=== PATIENT | male | born 1995 | race Asian ===

== ENCOUNTER 2021-07-05 20:39 | Emergency (ER) | payer BC ==
[~2021-07-05] VITALS: Ht 170.2 cm; Wt 61.2 kg
--- NOTE | 2021-07-05 20:54 | NUR ---
Dr. Gutiérrez examining patient.
[2021-07-05 20:56] VITALS: BP 109/69
--- NOTE | 2021-07-05 21:04 | NUR ---
PT TAKEN TO BED 5
[2021-07-05] MEDS ORDERED: IBUPROFEN 800 MG TAB PO ONE (21:20)
--- NOTE | 2021-07-05 21:45 | NUR ---
LAB AT BEDSIDE
[2021-07-05 22:08] LABS: BASOPHILS % (AUTO) 0.9 % (0.0-2.0); EOSINOPHILS % (AUTO) 0.2 % (0.0-4.0); HEMOGLOBIN 14.8 g/dL (12.0-18.0); LYMPHOCYTES # (AUTO) 0.7 K/uL (2.0-11.5); LYMPHOCYTES % (AUTO) 15.5 % (20.5-51.1); MEAN CORPUSCULAR HEMOGLOBIN 31 pg (27-31); MEAN CORPUSCULAR HGB CONC 34 g/dL (33-37); MEAN CORPUSCULAR VOLUME 91.4 fL (80-94); MONOCYTES # (AUTO) 0.6 K/uL (0.8-1.0); MONOCYTES % (AUTO) 11.8 % (1.7-9.3); NEUTROPHILS # (AUTO) 3.3 K/uL (1.8-7.7); NEUTROPHILS % (AUTO) 71.6 % (42.2-75.2); PLATELET COUNT (AUTO) 150 K/uL (140-450); RED BLOOD CELL COUNT(AUTO) 4.81 MIL/uL (4.20-6.10); RED CELL DISTRIBUTION WIDTH 12.4 % (11.6-13.7); WHITE BLOOD COUNT (AUTO) 4.7 K/uL (4.8-10.8)
--- NOTE | 2021-07-05 22:38 | NUR ---
PT TAKEN TO CT
--- NOTE | 2021-07-05 22:42 | NUR ---
PT TO CT
[2021-07-05 22:46] LABS: ALBUMIN 4.1 g/dL (3.4-5.0); ANION GAP 11.5 (8-16); CARBON DIOXIDE 27.5 mmol/L (21-32); CREATININE 1.1 mg/dL (0.6-1.3); TOTAL BILIRUBIN 0.8 mg/dL (0.0-1.0)
--- NOTE | 2021-07-05 23:06 | NUR ---
PATIENT RESTING IN BED. STATES PAIN IS 2/10
--- NOTE | 2021-07-06 00:06 | NUR ---
PENDING DC PAPERWORK.
--- NOTE | 2021-07-06 00:16 | NUR ---
ULTRASOUND DONE AT BEDSIDE
[2021-07-06 00:26] VITALS: BP 117/68
--- NOTE | 2021-07-06 00:26 | NUR ---
Patient discharged with v/s stable. Written and verbal after care instructions given and explained. Patient verbalized understanding. Ambulatory with steady gait. All questions addressed prior to discharge. Advised to follow up with PMD.
--- NOTE | 2021-07-06 02:40 | NUR ---
The patient's care was reviewed and supervised by Bailey Nevarez RN. Chart checked.
== END 2021-07-06 00:26 | disposition home or self-care (01) ==
LOC: MED 20:39
DX: G43.909 Migraine, unspecified, not intractable, without status migrainosus (principal); F12.90 Cannabis use, unspecified, uncomplicated
CPT/HCPCS: 36415; 70450; 80053; 85025; 99284